=== PATIENT | male | born 1970 | race Caucasian/White ===

== ENCOUNTER 2016-09-22 17:18 | Emergency (ER) | payer SELFPAY ==
[2016-09-22] MEDS ORDERED: SODIUM CHLOR 0.9% 1000 ML INJ 1,000 ML IV SCH (17:55)
[2016-09-22] MEDS ORDERED: SODIUM CHLORIDE 0.9% FLUSH 10 ML FLUSH IV FLUSH PRN (18:00)
--- NOTE | 2016-09-22 18:04 | PD ---
HPI Chief Complaint: diarrhea Time Seen by Provider: 17:55 Travel History International Travel<30 days: No Contact w/Intl Traveler<30days: No Traveled to known affect area: No History of Present Illness HPI 46-year-old male with history of HIV/AIDS, not currently on any anti-retroviral medications since last year, recently in care home with C. difficile diarrhea which she had been treated for for a week, presents to the ER today because he states that he has been having abdominal cramping and diarrhea. He states he's had 3 watery stools today. He denies any fevers, vomiting, or other symptoms. He states that all he can eat now is broth. He denies any black stools or blood in the stools. Modifying Factors: None Associated Signs & Symptoms: Watery diarrhea Risk Factors: Recent [facility]icile [facility] history [facility] Social History Tobacco Use: No Allergies-Medications (Allergen,Severity, Reaction): Coded Allergies: Amoxicillin (Verified Allergy, Unknown, 09/22/16) Reported Meds & Prescriptions Reported Meds & Active Scripts Active No Active Prescriptions or Reported Medications Review of Systems Except as stated in HPI: all other systems reviewed are Neg Physical Exam Narrative GENERAL: Thin middle age white male patient currently in mild distress. Awake and oriented 3. SKIN: Focused skin assessment warm/dry. HEAD: Atraumatic. Normocephalic. EYES: Pupils equal and round. No scleral icterus. No injection or drainage. ENT: No nasal bleeding or discharge. Mucous membranes pink and moist. NECK: Trachea midline. No JVD. CARDIOVASCULAR: Regular rate and rhythm. No murmur appreciated. RESPIRATORY: No accessory muscle use. Clear to auscultation. Breath sounds equal bilaterally. GASTROINTESTINAL: Abdomen soft, diffuse abdominal tenderness without guarding or rebound, mildly distended. Hepatic and splenic margins not palpable. MUSCULOSKELETAL: No obvious deformities. No clubbing. No cyanosis. No edema. NEUROLOGICAL: Awake and alert. No obvious cranial nerve deficits. Motor grossly within normal limits. Normal speech. PSYCHIATRIC: Appropriate mood and affect; insight and judgment normal. Data Data Last Documented VS Vital Signs Date Time Temp Pulse Resp B/P Pulse Ox O2 Delivery O2 Flow Rate FiO2 09/22/16 18:17 99 Room Air 09/22/16 18:14 100.2 81 18 147/87 Orders Complete Blood Count With Diff (09/22/16 17:55) Comprehensive Metabolic Panel (09/22/16 17:55) Lipase (09/22/16 17:55) Urinalysis - C+S If Indicated (09/22/16 17:55) Iv Access Insert/Monitor (09/22/16 17:55) Ecg Monitoring (09/22/16 17:55) Oximetry (09/22/16 17:55) Sodium Chlor 0.9% 1000 Ml Inj (Ns 1000 M (09/22/16 17:55) Sodium Chloride 0.9% Flush (Ns Flush) (09/22/16 18:00) C Diff Toxin Pcr (09/22/16 17:55) Vascular Access Team Consult/P PRN (09/22/16 18:36) Vascular Poc Ultrasound (09/22/16 ) Labs Laboratory Tests Test 09/22/16 18:30 Urine Color YELLOW Urine Turbidity CLEAR Urine pH 6.5 Urine Specific [place] 1.015 Urine Protein NEG mg/dL Urine Glucose (UA) NEG mg/dL Urine Ketones NEG mg/dL Urine Occult Blood NEG Urine Nitrite NEG Urine Bilirubin NEG Urine Urobilinogen 2.0 MG/DL Urine Leukocyte Esterase NEG Urine WBC 2 /hpf Urine Mucus FEW /lpf Microscopic Urinalysis Comment CULT NOT INDICATED MDM Medical Decision Making Medical Screen Exam Complete: Yes Emergency Medical Condition: Yes Medical Record Reviewed: Yes Differential Diagnosis Diarrhea, abdominal painsgastroenteritis versus C. difficile diarrhea versus dehydration versus metabolic issues Narrative Course Initial lab work ordered on the patient. IV fluids ordered. Physician Communication Physician Communication Case is signed out to Dr. Valentin at 7 PM awaiting workup. Disposition based on workup. Diagnosis Primary Impression: Diarrhea Scripts No Active Prescriptions or Reported Meds Condition: Dariel Ch MD Sep 22, 2016 18:04
[2016-09-22 18:14] VITALS: BP 147/87; PULSE 81; RESP 18; TEMP 100.2; O2SAT 99
[2016-09-22 18:17] VITALS: O2SAT 99
[2016-09-22 19:09] LABS: BLOOD, URINE NEG (NEG); COMMENT (UR) CULT NOT INDICATED; CULTURE IF INDICATED CULT NOT INDICATED; GLUCOSE,URINE NEG (NEG); KETONE, URINE NEG (NEG); MUCUS URINE FEW /lpf (OCC); NITRITE,URINE NEG (NEG); PH, URINE 6.5 (5.0-8.5); URINE COLOR YELLOW (YELLW/STRAW)
[2016-09-22] MEDS ORDERED: DICYCLOMINE HCL 10 MG CAP PO ONE (20:15)
[2016-09-22 20:22] LABS: AUTOMATED NEUTROPHIL # 3.6 TH/MM3 (1.8-7.7); BASOPHIL % 0.2 % (0.0-2.0); EOSINOPHIL % 0.4 % (0.0-4.0); HEMATOCRIT 39.4 % (39.0-51.0); HEMO FLAGS DIFF FINAL; LYMPHOCYTE # 0.7 TH/MM3 (1.0-4.8); MEAN CELL VOLUME 83.3 FL (80.0-100.0); MEAN CORPUSCULAR HEMOGLOBIN 27.7 PG (27.0-34.0); MEAN CORPUSCULAR HGB CONC 33.2 % (32.0-36.0); MONO % 10.6 % (0.0-8.0); NEUT % 73.8 % (16.0-70.0); PLATELET COUNT 219 TH/MM3 (150-450); RED BLOOD COUNT 4.73 MIL/MM3 (4.50-5.90); RED CELL DISTRIBUTION WIDTH 15.7 % (11.6-17.2); WHITE BLOOD COUNT 4.9 TH/MM3 (4.0-11.0)
[2016-09-22 21:56] LABS: ANION GAP 10 MEQ/L (5-15); BICARBONATE 21.7 MEQ/L (21.0-32.0); BLOOD UREA NITROGEN 11 MG/DL (7-18); CHLORIDE 106 MEQ/L (98-107); POTASSIUM 4.8 MEQ/L (3.5-5.1); SODIUM (NA) 138 MEQ/L (136-145)
[2016-09-22 22:07] LABS: ALKALINE PHOSPHATASE 140 U/L (45-117); ALT (GPT) 79 U/L (12-78); AST (GOT) 81 U/L (15-37); GLOMERULAR FILTRATION RATE 135 ML/MIN (>89); TOTAL BILIRUBIN ADULT 1.5 MG/DL (0.2-1.0)
[2016-09-22] MEDS ORDERED: metroNIDAZOLE 500 MG TAB PO ONE (22:30)
[2016-09-22] MEDS ORDERED: CIPROFLOXACIN 500 MG TAB PO ONE (22:30)
[2016-09-22] MEDS ORDERED: METR-1 PO (22:39)
[2016-09-22] MEDS ORDERED: CIPR-9 PO (22:39)
--- NOTE | 2016-09-22 22:39 | PD ---
Physical Exam Narrative Patient signed out to me by Dr. Enamorado. Please see her note for complete details. Briefly, patient has been having diarrhea. He says he has some abdominal bloating and cramping. He denies fevers. He says he was trying Probiotics and at some point he had C.Diff. He said he was taking antibiotics for it, but does not remember which. Exam shows abdomen is soft and nontender. Heart is RRR. Data Data Last Documented VS Vital Signs Date Time Temp Pulse Resp B/P Pulse Ox O2 Delivery O2 Flow Rate FiO2 09/22/16 18:17 99 Room Air 09/22/16 18:14 100.2 81 18 147/87 Orders Complete Blood Count With Diff (09/22/16 17:55) Comprehensive Metabolic Panel (09/22/16 17:55) Lipase (09/22/16 17:55) Urinalysis - C+S If Indicated (09/22/16 17:55) Iv Access Insert/Monitor (09/22/16 17:55) Ecg Monitoring (09/22/16 17:55) Oximetry (09/22/16 17:55) Sodium Chlor 0.9% 1000 Ml Inj (Ns 1000 M (09/22/16 17:55) Sodium Chloride 0.9% Flush (Ns Flush) (09/22/16 18:00) C Diff Toxin Pcr (09/22/16 17:55) Vascular Access Team Consult/P PRN (09/22/16 18:36) Vascular Poc Ultrasound (09/22/16 ) Dicyclomine (Bentyl) (09/22/16 20:15) Ciprofloxacin (Cipro) (09/22/16 22:30) Metronidazole (Flagyl) (09/22/16 22:30) Labs Laboratory Tests Test 09/22/16 09/22/16 18:30 19:42 Urine Color YELLOW Urine Turbidity CLEAR Urine pH 6.5 Urine Specific [place] 1.015 Urine Protein NEG mg/dL Urine Glucose (UA) NEG mg/dL Urine Ketones NEG mg/dL Urine Occult Blood NEG Urine Nitrite NEG Urine Bilirubin NEG Urine Urobilinogen 2.0 MG/DL Urine Leukocyte Esterase NEG Urine WBC 2 /hpf Urine Mucus FEW /lpf Microscopic Urinalysis Comment CULT NOT INDICATED Sodium Level 138 MEQ/L Potassium Level 4.8 MEQ/L Chloride Level 106 MEQ/L Carbon Dioxide Level 21.7 MEQ/L Anion Gap 10 MEQ/L Blood Urea Nitrogen 11 MG/DL Creatinine 0.64 MG/DL Estimat Glomerular Filtration 135 ML/MIN Rate Random Glucose 107 MG/DL Calcium Level 8.1 MG/DL Total Bilirubin 1.5 MG/DL Aspartate Amino Transf 81 U/L (AST/SGOT) Alanine Aminotransferase 79 U/L (ALT/SGPT) Alkaline Phosphatase 140 U/L Total Protein 5.5 GM/DL Albumin 1.6 GM/DL Lipase 66 U/L White Blood Count 4.9 TH/MM3 Red Blood Count 4.73 MIL/MM3 Hemoglobin 13.1 GM/DL Hematocrit 39.4 % Mean Corpuscular Volume 83.3 FL Mean Corpuscular Hemoglobin 27.7 PG Mean Corpuscular Hemoglobin 33.2 % Concent Red Cell Distribution Width 15.7 % Platelet Count 219 TH/MM3 Mean Platelet Volume 8.2 FL Neutrophils (%) (Auto) 73.8 % Lymphocytes (%) (Auto) 15.0 % Monocytes (%) (Auto) 10.6 % Eosinophils (%) (Auto) 0.4 % Basophils (%) (Auto) 0.2 % Neutrophils # (Auto) 3.6 TH/MM3 Lymphocytes # (Auto) 0.7 TH/MM3 Monocytes # (Auto) 0.5 TH/MM3 Eosinophils # (Auto) 0.0 TH/MM3 Basophils # (Auto) 0.0 TH/MM3 CBC Comment DIFF FINAL Differential Comment MDM Supervised Visit with DEE DEE: No Narrative Course Labs show slight elevated in AST/ALT, but this is improved from previous. He is resting comfortably. Given a dose of Cipro and Flagyl here. Given prescriptions for the antibiotics, which he says he can figure out how to get. He is advised to go to the [facility] for follow/management of his chronic issues. Patient is asking to go home. Advised to drink plenty of fluids and return at any time for any worsening symptoms. Diagnosis Primary Impression: Diarrhea Qualified Code: R19.7 - Diarrhea, unspecified type Referrals: [facility] call for appointment Patient Instructions: Acute Diarrhea (ED), General Instructions Additional Instruction: Take all of your antibiotics. Do not drink alcohol with these antibiotics as you will become very ill. Follow up in the [facility]. Return to the ED as needed for any worsening symptoms. Scripts Ciprofloxacin (Cipro)500 Mg Yup325 Mg PO BID 7 Days Ref 0 Prov:Roberta Valentin MD 09/22/16 Metronidazole (Flagyl)500 Mg Opu100 Mg PO TID 7 Days Ref 0 Prov:Roberta Valentin MD 09/22/16 Disposition: 01 DISCHARGE HOME Condition: Stable Roberta Valentin MD Sep 22, 2016 22:39
[2016-09-22 22:51] LABS: C. DIFF EPI 027 PRESUMPTIVE POSITIVE (NEGATIVE)
[2016-09-22 22:53] VITALS: BP 151/78; TEMP 98.9
== END 2016-09-22 22:54 | disposition home or self-care (01) ==
LOC: NEPC 17:18
DX: R19.7 Diarrhea, unspecified (principal); Z21 Asymptomatic human immunodeficiency virus [HIV] infection status; Z88.0 Allergy status to penicillin
CPT/HCPCS: 80053; 81001; 83690; 85025; 87493; 96360; 99284; J7030; 76937